=== PATIENT | female | born 1950 | race Caucasian/White ===

== ENCOUNTER 2018-08-02 22:32 | Inpatient (IN) | payer OTHER | END 2018-08-08 15:35 | DRG 207 | LOC: M.ERS 22:32 → M.TBA-ER 08-03 03:06 → M.ICU 08-03 03:18 | PROVIDERS: ADMIT Internal Medicine | PROC: 5A1955Z Respiratory Ventilation, Greater than 96 Consecutive Hours (ICD-10-PCS; principal; 2018-08-03) | PROC: 0BH17EZ Insertion of Endotracheal Airway into Trachea, Via Natural or Artificial Opening (ICD-10-PCS; principal; 2018-08-03) | PROC: 05HY33Z Insertion of Infusion Device into Upper Vein, Percutaneous Approach (ICD-10-PCS; 2018-08-05) | DX: J96.00 Acute respiratory failure, unspecified whether with hypoxia or hypercapnia (principal); I63.213 Cerebral infarction due to unspecified occlusion or stenosis of bilateral vertebral arteries; N17.9 Acute kidney failure, unspecified; I48.1 Persistent atrial fibrillation; G93.1 Anoxic brain damage, not elsewhere classified; I10 Essential (primary) hypertension; I95.9 Hypotension, unspecified; D72.829 Elevated white blood cell count, unspecified; T68.XXXA Hypothermia, initial encounter; Z66 Do not resuscitate; Z88.0 Allergy status to penicillin; Z79.899 Other long term (current) drug therapy ==